=== PATIENT | male | born 1975 | race Caucasian/White ===

== ENCOUNTER 2017-01-09 03:03 | Emergency (ER) | payer OTHER ==
[2017-01-09] MEDS ORDERED: IV NORMAL SALINE 1,000ML 1,000 ML IV ONE (03:15)
[2017-01-09 03:48] LABS: BASO % 1 % (0-3); EOS # 0.3 x10^3/uL (0.0-0.7); EOS % 5 % (0-3); HEMATOCRIT 41.8 % (39.0-53.0); HEMOGLOBIN 14.2 g/dL (13.0-17.5); LYMPH # 2.6 x10^3/uL (1.0-4.8); LYMPH % 48 % (24-48); MEAN CORPUSCULAR HEMOGLOBIN 29 pg (25-35); MEAN CORPUSCULAR HGB CONC 34 g/dL (31-37); MEAN CORPUSCULAR VOLUME 86 fL (79-100); MONO # 0.6 x10^3/uL (0.0-1.1); MONO % 10 % (0-9); NEUT # 1.9 x10^3uL (1.8-7.7); NEUT % 36 % (31-73); PLATELET COUNT 151 x10^3/uL (140-400); RED BLOOD COUNT 4.84 x10^6/uL (4.30-5.70); RED CELL DISTRIBUTION WIDTH 12.6 % (11.5-14.5); WHITE BLOOD COUNT 5.4 x10^3/uL (4.0-11.0)
[2017-01-09 04:02] LABS: ALBUMIN 3.5 g/dL (3.4-5.0); CALCIUM 8.5 mg/dL (8.5-10.1); CREATININE 1.1 mg/dL (0.7-1.3); GFR 73.8; POTASSIUM 3.3 mmol/L (3.5-5.1); TOTAL BILIRUBIN 0.5 mg/dL (0.2-1.0); TOTAL PROTEIN 7.1 g/dL (6.4-8.2)
[2017-01-09 04:04] VITALS: BP 117/68
--- NOTE | 2017-01-09 04:28 | PHYS DOC ---
Past History Past Medical History: Anxiety, Migraines Past Surgical History: Other Alcohol Use: None Drug Use: None Adult General Chief Complaint Chief Complaint: ANXIETY/PANIC ATTACK HPI HPI Patient is a healthy 41-year-old gentleman who presents here today secondary to waking up this a.m. with the sensation of panic attack. Patient reports he's had panic attacks in the past. Patient reports this morning when he woke up he felt like his heart was racing and he felt like it was pounding very hard he felt tingly and jittery all over and felt very anxious. Patient reports that he' s had seasonal allergies and has been taking Sudafed medication every 4 hours for the last day. Patient did not bring the medication with him. Patient denies any other symptomatology. Patient denies any chest pain or chest pressure. Patient has any shortness of breath. Patient has a nausea vomiting or diarrhea. Patient reports that he has sensation that he couldn't take a deep breath and however he denies any shortness of breath. Patient has any recent fevers cough cold Raynaud's vomiting diarrhea. Patient reports that he is a very healthy individual and he does have a history of anxiety in the past he uses exercise in order to control his anxiety. Patient denies any history of hypertension diabetes liver lung or kidney problems. Patient does not smoke drink or do any drugs. Patient denies any alcohol intake or any chance of contamination of any beverages tonight. Patient reports that time he came in with EMS he was asymptomatic. He feels much better currently and feels "embarrassed to be here ". Review of systems: Constitutional: Denies fever or chills Eyes: Denies change in visual acuity, redness, or eye pain HENT: Denies nasal congestion or sore throat All other review systems are negative except as documented in the history of present illness portion. Physical exam: Constitutional: Well developed, well nourished, no acute distress, non-toxic appearance. HENT: Normocephalic, atraumatic, bilateral external ears normal, oropharynx moist, no oral exudates, nose normal. Eyes: PERRLA, EOMI, conjunctiva normal, no discharge. Neck: Normal range of motion, no tenderness, supple, no stridor. Cardiovascular:Heart rate regular rhythm Lungs & Thorax: Bilateral breath sounds clear to auscultation Abdomen: Bowel sounds normal, soft, no tenderness, no masses, no pulsatile masses. Skin: Warm, dry, no erythema, no rash. Back: No tenderness, no CVA tenderness. Extremities: No tenderness, no cyanosis, no clubbing, ROM intact, no edema. Neurologic: Alert and oriented X 3, normal motor function, normal sensory function, no focal deficits noted. Psychologic: Affect normal, judgement normal, mood normal. Patient's ER workup was significant for normal labs. Patient with an EKG that revealed normal sinus rhythm at a heart rate of 48. Patient reports that he is heart rate is usually slow secondary to being externally healthy very athletic. There is no evidence of ST elevation [place] on the EKG. Patient's labs were all unremarkable. Patient has normal electrolytes CBC troponin. I have offered to check a urine drug screen on the patient to see and make sure that there was no contamination and he drinks. Patient is requesting that I go ahead and do that. Assessment and plan anxiety. Most likely secondary to unintentional overmedication of Sudafed medication today from his sinus allergies. Patient's clinically hemodynamically stable in ER. Patient's ER workup has been unremarkable. Patient is currently symptomatic. Etiology of the symptoms are not 100% clear however there is a high probability likelihood that this is most likely from overmedication. Sudafed. Patient will be discharged home in stable condition do not see any further cause her need for inpatient or ER evaluation at this time. Patient is in agreement and feels comfortable going home. Current Medications Current Medications Current Medications Medications (Trade) Dose Ordered Sig/Diego Start Time Stop Time Status Last Admin Dose Admin Sodium Chloride 1,000 ml @ 1,000 mls/hr 1X ONCE 01/09/17 03:15 01/09/17 04:14 DC 01/09/17 03:37 1,000 MLS/HR Current Patient Data Vital Signs Vital Signs Date Time Temp Pulse Resp B/P (MAP) Pulse Ox O2 Delivery O2 Flow Rate FiO2 01/09/17 04:04 48 18 117/68 (84) 97 Room Air 01/09/17 03:03 97.6 Lab Results Laboratory Tests Test 01/09/17 03:33 White Blood Count 5.4 x10^3/uL (4.0-11.0) Red Blood Count 4.84 x10^6/uL (4.30-5.70) Hemoglobin 14.2 g/dL (13.0-17.5) Hematocrit 41.8 % (39.0-53.0) Mean Corpuscular Volume 86 fL (79-100) Mean Corpuscular Hemoglobin 29 pg (25-35) Mean Corpuscular Hemoglobin Concent 34 g/dL (31-37) Red Cell Distribution Width 12.6 % (11.5-14.5) Platelet Count 151 x10^3/uL (140-400) Neutrophils (%) (Auto) 36 % (31-73) Lymphocytes (%) (Auto) 48 % (24-48) Monocytes (%) (Auto) 10 % (0-9) H Eosinophils (%) (Auto) 5 % (0-3) H Basophils (%) (Auto) 1 % (0-3) Neutrophils # (Auto) 1.9 x10^3uL (1.8-7.7) Lymphocytes # (Auto) 2.6 x10^3/uL (1.0-4.8) Monocytes # (Auto) 0.6 x10^3/uL (0.0-1.1) Eosinophils # (Auto) 0.3 x10^3/uL (0.0-0.7) Basophils # (Auto) 0.0 x10^3/uL (0.0-0.2) Sodium Level 142 mmol/L (136-145) Potassium Level 3.3 mmol/L (3.5-5.1) L Chloride Level 105 mmol/L (98-107) Carbon Dioxide Level 31 mmol/L (21-32) Anion Gap 6 (6-14) Blood Urea Nitrogen 20 mg/dL (8-26) Creatinine 1.1 mg/dL (0.7-1.3) Estimated GFR (Cockcroft-Gault) 73.8 BUN/Creatinine Ratio 18 (6-20) Glucose Level 119 mg/dL (70-99) H Calcium Level 8.5 mg/dL (8.5-10.1) Total Bilirubin 0.5 mg/dL (0.2-1.0) Aspartate Amino Transferase (AST) 22 U/L (15-37) Alanine Aminotransferase (ALT) 23 U/L (16-63) Alkaline Phosphatase 41 U/L (46-116) L Troponin I Quantitative 0.032 ng/mL (0-0.055) Total Protein 7.1 g/dL (6.4-8.2) Albumin 3.5 g/dL (3.4-5.0) Albumin/Globulin Ratio 1.0 (1.0-1.7) Ethyl Alcohol Level < 10 mg/dL (0-10) EKG EKG [] Radiology/Procedures Radiology/Procedures [] Course & Med Decision Making Course & Med Decision Making Pertinent Labs and Imaging studies reviewed. (See chart for details) [] Dragon Disclaimer Dragon Disclaimer This chart was dictated in whole or in part using Voice Recognition software in a busy, high-work load, and often noisy Emergency Department environment. It may contain unintended and wholly unrecognized errors or omissions. Departure Departure: Impression: Primary Impression: Anxiety Additional Impression: Medication reaction Disposition: 01 HOME, SELF-CARE Condition: IMPROVED Referrals: PCP,NO (PCP) Patient Instructions: Anxiety and Panic Attacks Additional Instructions: Your evaluated today in the ER for possible anxiety versus overmedication from your Sudafed. I would avoid Sudafed in excessive doses in the future. I would avoid any Sudafed for the next 24-48 hours. Problem Qualifiers RADHA SONG MD Jan 09, 2017 04:28
[2017-01-09 04:35] LABS: BARBITURATES NEG (NEG); BENZODIAZEPINES NEG (NEG); CANNABINOIDS NEG (NEG); COCAINE NEG (NEG); METHADONE NEG (NEG); OPIATES NEG (NEG); PHENCYCLIDINE NEG (NEG)
[2017-01-09 04:36] LABS: BACTERIA,URINE FEW /HPF (0-FEW); BILIRUBIN,URINE NEG (NEG); CLARITY,URINE CLEAR; COLOR,URINE YELLOW; GLUCOSE,URINE NEG (NEG); NITRITE,URINE NEG (NEG); RBC,URINE OCC /HPF (0-2); SQUAMOUS EPITHELIAL CELL,UR OCC /LPF; UROBILINOGEN,URINE 0.2 mg/dL (0.2 mg/dL); WBC,URINE OCC /HPF (0-4)
[2017-01-09 04:37] LABS: AMPHETAMINE/METHAMPHETAMINE NEG (NEG)
--- NOTE | 2017-01-09 06:49 | EKG ---
[address] [address] Test Date: 2017-01-09 Test Time: 03:24:17 Pat Name: SAVI WILSON Department: Room: Gender: M Wine [employer]ment[employer]: KYARA : 1975 Requested By: RADHA SONG Order Number: [id number] Reading MD: Measurements Intervals [place] Rate: 48 P: 18 GA: 208 QRS: 53 QRSD: 88 T: 34 QT: 410 QTc: 366 Interpretive Statements SINUS BRADYCARDIA QRS(T) CONTOUR ABNORMALITY CANNOT RULE OUT ANTEROSEPTAL MYOCARDIAL DAMAGE RI6.01 Unconfirmed report No previous ECG available for comparison
== END 2017-01-09 04:43 | disposition home or self-care (01) ==
LOC: ER 03:03
DX: F41.9 Anxiety disorder, unspecified (principal); T44.995A Adverse effect of other drug primarily affecting the autonomic nervous system, initial encounter; G43.909 Migraine, unspecified, not intractable, without status migrainosus; Y92.89 Other specified places as the place of occurrence of the external cause
CPT/HCPCS: 36415; 80053; 80307; 81001; 84484; 85025; 93005; 96360; 99285; G0480; G0479; J7030